=== PATIENT | female | born 1945 | race Caucasian/White ===

== ENCOUNTER → 2017-03-11 | Outpatient (CLI) | payer OTHER ==
[~2017-03-11] MED LIST: CALCTAB5 PO; CHOL100010 PO; DXY50 PO; FSM70 PO; GFNSR600 PO; MOME50SP5; MULT-506 PO; PARO1TAB27 PO; SIMV10TA2 PO; SYN100 PO
[2017-03-11 13:29] LABS: BASO % 0.3 %; BASO ABS # 0.01 K/uL (0-0.2); COMPLETE YES; EOS % 2.8 %; HEMATOCRIT 37.1 % (37-47); IG% 0.3 %; LYMPH % 37.9 %; MEAN CELL VOLUME 95.6 fL (80-100); MEAN CORPUSCULAR HGB CONC 33.4 g/dl (32-36); MONO % 8.2 %; NEUT % 50.5 %; PLATELET COUNT 273 K/uL (130-400); RED BLOOD COUNT 3.88 M/uL (4.2-5.4); WHITE BLOOD COUNT 3.17 K/uL (4.8-10.8)
[2017-03-11 13:53] LABS: ALT/SGPT 23 U/L (12-78); AST/SGOT 21 U/L (15-37); BLOOD UREA NITROGEN 19 mg/dl (7-18); BUN/CREATININE RATIO 27.4 (10-20); CARBON DIOXIDE 30 mmol/L (21-32); CHLORIDE 104 mmol/L (98-107); CHOLESTEROL 213 mg/dl (0-200); GLUCOSE 88 mg/dl (70-99); SODIUM 142 mmol/L (136-145); TRIGLYCERIDES 69 mg/dl (0-150); VERY LOW DENSITY LIPOPROT CALC 14 mg/dl
[2017-03-11 13:56] LABS: ALB/GLOB RATIO 1.3 (0.9-2); ALKALINE PHOSPHATASE 51 U/L (45-117); CALCIUM 9.3 mg/dl (8.5-10.1); CHOLESTEROL/HDL RATIO 3.1; HDL CHOLESTEROL 69 mg/dl; LDL CHOLESTEROL CALCULATED 130 mg/dl
== END | disposition home or self-care (01) ==
LOC: C.LABBC 10:15
PROVIDERS: ATTEND Internal Medicine Endocrinology, Diabetes & Metabolism
DX: C73 Malignant neoplasm of thyroid gland (principal); E89.0 Postprocedural hypothyroidism; E78.5 Hyperlipidemia, unspecified; M85.80 Other specified disorders of bone density and structure, unspecified site; Z92.3 Personal history of irradiation

== ENCOUNTER → 2017-05-14 | Outpatient (CLI) | payer OTHER ==
--- NOTE | 2017-05-15 07:45 | MAMMOGRAPHY REPORT ---
BILATERAL DIGITAL SCREENING MAMMOGRAM WITH CAD: 05/14/2017 CLINICAL HISTORY: Routine screening. Patient has no complaints. TECHNIQUE: Bilateral CC and MLO views were obtained. Current study was also evaluated with a Comput er Aided Detection (CAD) system. COMPARISON: Comparison is made to exams dated: 05/09/2016 mammogram, 04/22/2015 mammogram, 04/21/2014 ma mmogram, 04/20/2013 mammogram, 04/14/2012 mammogram, and 04/12/2011 mammogram - [facility] er. BREAST COMPOSITION: There are scattered areas of fibroglandular density in both breasts. FINDINGS: The parenchymal pattern is unchanged. No developing mass, architectural distortion or clus ter of suspicious microcalcifications is seen in either breast. IMPRESSION: ACR BI-RADS CATEGORY 2: BENIGN There is no mammographic evidence of malignancy. A 1 year screening mammogram is recommended. The pa tient will receive written notification of the results. Approximately 10% of breast cancers are not detected with mammography. A negative mammographic report should not delay biopsy if a clinically suggestive mass is present. Cecilia Peterson M.D. ay/:05/14/2017 16:09:38 [employer]obile [employer] Truck Rental Dispatcher: Carla Cam, [facility] letter sent: Normal 1/2 BI-RADS Code: ACR BI-RADS Category 2: Benign
== END | disposition home or self-care (01) ==
LOC: C.MAMM 11:20
PROVIDERS: ATTEND Family Medicine
DX: Z12.31 Encounter for screening mammogram for malignant neoplasm of breast (principal)

== ENCOUNTER → 2018-02-19 | Outpatient (CLI) | payer OTHER | END | disposition home or self-care (01) | LOC: C.LABBC 09:50 | PROVIDERS: ATTEND Internal Medicine Endocrinology, Diabetes & Metabolism | DX: C73 Malignant neoplasm of thyroid gland (principal); E89.0 Postprocedural hypothyroidism; M85.80 Other specified disorders of bone density and structure, unspecified site; E78.5 Hyperlipidemia, unspecified; Z92.3 Personal history of irradiation ==

== ENCOUNTER → 2018-02-25 | Outpatient (CLI) | payer OTHER | END | disposition home or self-care (01) | LOC: C.PAPS 13:47 | PROVIDERS: ATTEND Obstetrics & Gynecology | DX: Z91.89 Other specified personal risk factors, not elsewhere classified (principal); R87.610 Atypical squamous cells of undetermined significance on cytologic smear of cervix (ASC-US) ==

== ENCOUNTER → 2018-04-11 | Outpatient (CLI) | payer OTHER ==
--- NOTE | 2018-04-18 09:45 | CODING QUERY NO DIAGNOSIS ---
TREATMENT RENDERED WITHOUT A DIAGNOSIS 46 To promote full compliance with coding requirements relating to patient care, physician participation is requested in all cases of acquisitions editor uncertainty. Please assist us with providing a diagnosis/symptom for the test(s) below: A diagnosis/symptom was not documented on your Order. A valid diagnosis/symptom is required to bill all insurances. Please remember that we are unable to code a diagnosis of rule out, probable, possible, questionable, or suspected. DOS 04/11/18 Tests that require a diagnosis: * LIPID PROFILE FASTING DIAGNOSIS: Provider Signature: Date: Thank you Chelly Peters Health Information Management Once completed, please kindly fax back to [phone] For questions please call [phone]
== END | disposition home or self-care (01) ==
LOC: C.LABBC 08:18
PROVIDERS: ATTEND Internal Medicine
DX: Z01.89 Encounter for other specified special examinations (principal)

== ENCOUNTER 2025-08-31 17:10 | Observation (INO) ==
--- NOTE | 2025-08-31 17:49 | Emergency Department Note ---
Impression & Plan SOB (shortness of breath), Exertional dyspnea, CHF (congestive heart failure), Heart murmur, Elevated troponin, Elevated d-dimer ED Provider Note NAME: JOSÉ LUIS QUESADA AGE: 79 SEX: F : 1945 ARRIVES VIA: Walk-In INFORMANT: [Patient] ED PROVIDER(S): [Raulito Tobin MD] CHIEF COMPLAINT: Abnormal laboratories HISTORY OF PRESENT ILLNESS: The patient is a 79-year-old female who presents to the ER with shortness of breath that she notices with exertion or any type of exercise. The breathing issue has been present for at least 3 weeks. No leg swelling, no history of previous DVT or PE. She states that she did have some upper back pain for a while when this all started however, this has now resolved. There has been no prolonged travel by car plane or train. She has not had recent surgery. The patient does have a history of mitral valve prolapse, this is followed reg ularly with cardiac echoes. The patient states that she saw her doctor today and had outpatient laboratory work done, she had an elevated D-dimer and was sent for a CT scan to rule out PE. The D-dimer value was 640. Today's outpatient laboratory testing showed a white blood cell count of 4.48, hemoglobin of 11.9, platelet count of 307. There was no renal failure or significant electrolyte abnormality. No concerning liver enzyme elevation. Patient had a normal TSH. Chest x-ray was read as showing potential mild CHF without pneumonia. PMHx/PSHx/Social Hx: See Below PHYSICAL EXAM: GENERAL: Patient is in no acute distress. HEENT: No acute trauma, normocephalic atraumatic, mucous membranes moist, no nasal congestion. NECK: No stridor, no adenopathy, no meningismus, trachea is midline. LUNGS: Clear to auscultation bilaterally, no wheeze, no rhonchi, breath sounds equal. HEART: 3/6 systolic murmur, regular rate and rhythm. ABDOMEN: Soft, nontender, no peritonitis. EXTREMITIES: No cyanosis, full range of motion of all the joints without pain or difficulty. No pedal edema. NEUROLOGIC: Oriented x 3, no acute motor or sensory deficits, no focal weakness. SKIN: No jaundice, no diaphoresis. DIFFERENTIAL DIAGNOSIS: CHF, mitral valve prolapse, PE, anemia, among others. EMERGENCY DEPARTMENT PROCEDURES: MEDICAL DECISION MAKING: I did review the laboratory work from earlier today as noted in the above history section. There was no concerning anemia. No renal failure or significant electrolyte abnormality. No concerning liver enzyme elevation. The patient's TSH was in the normal range. D-dimer was elevated making PE more likely. I did review her chest x-ray from earlier today, there was some mild CHF seen, no pneumonia. Here in the ED, some additional laboratory work was performed. She had a magnesium that was normal at 2.1. There was a mild elevation to the troponin at 25.5, this could indicate some cardiac strain/injury. BNP was quite high at 421 consistent with heart failure and fluid overload. There was no coagulopathy. The ECG showed a sinus rhythm, no acute ST elevation. Chest CT did not show PE, CHF was seen. Patient has a prominent cardiac murmur. She presents with increasing shortness of breath especially with exertion. She appears to be in heart failure by x-ray and laboratory testing. The patient was given IV Lasix. Given the findings, given the troponin elevation and her dyspnea, I do think hospitalization for further workup is warranted. I did speak with the patient and case management, the on-call hospitalist was consulted. Prior/Outside records/notes reviewed: Today's outpatient note describing her presentation, their concerns and the need for an ED referral. ECG per my interpretation: Indication was shortness of breath. The ECG shows a normal sinus rhythm with a rate of 70. There is some nonspecific ST change diffusely. There is no ST elevation, no PVCs. The QTc is 442. Continuous Cardiac Monitoring per my interpretation: An order was placed for continuous cardiac monitoring. The monitor shows a rate of 79 with normal sinus rhythm. Imaging/x-ray results per my interpretation: Chest x-ray from earlier today shows some mild CHF, no pneumonia. Chronic Medical/Social conditions affecting care: Advanced age. Care/Management discussed with: Case management and the on-call hospitalist. Level of care consideration(s): After review of the information above and other included data: --I believe the patient requires escalation of care to admission DISPOSITION: Admission Past Med/Surg History Problem List Elevated d-dimer (Acute) Elevated troponin (Acute) Heart murmur (Acute) CHF (congestive heart failure) (Acute) Exertional dyspnea (Acute) SOB (shortness of breath) (Acute) Obstructive sleep apnea Osteoporosis Hx of papillary thyroid carcinoma Tubular adenoma (Chronic) Vitamin D deficiency (Chronic) Stress incontinence in female (Chronic) Nocturnal hypoxemia (Chronic) Myxomatous mitral valve (Chronic) follows with [facility] Moderate mitral regurgitation (Chronic) Hypothyroidism (Chronic) Hyperlipidemia (Chronic) Medical History History of colon polyps Family history of colon cancer Microscopic hematuria Leukopenia Myxomatous mitral valve no cards History of COVID-19 2020 History of kidney stones Osteoarthritis Urinary frequency Surgical History History of trigger finger with release left ring finger History of cataract surgery History of breast biopsy benign History of colonoscopy History of tooth extraction History of tonsillectomy History of total thyroidectomy History of nasal polypectomy Family History Father Pancreatic cancer Valvular heart disease Hypertension Mother Colon cancer Hypertension Brother Systemic lupus erythematosus Grandmother Cancer Daughter Liver transplanted Other No family history of adverse response to anesthesia Denies family history of Ovarian cancer Prostate cancer Myocardial infarction Breast cancer Lung cancer Colorectal cancer Social History Smoking Status: Former smoker Tobacco Type: Cigarettes Smoking End Date: 50 years ago; Second Hand Exposure: No; Do You Dip or Chew Tobacco: No; Hx Alcohol Use: Yes Alcohol type: wine Alcohol Intake Frequency Comment: 2 glasses a day Hx Substance Use: No Preferred Language: Slovak Communication Ability: Effective Visual Impairment: Diminished Hearing Ability: Use of Hearing Aid Advertising Assistant Required: No Beliefs That Will Affect Care: None marital status: Current Living Situation: Spouse current occupational status: retired How many Children do You have: 2 Feels Safe at Home: Yes Safety Concerns: Feels Safe At This Time Childhood Exposure to Second-Hand Smoke: No Diet: low carbohydrate and low salt caffeine: Yes (coffee ) Dental Care, Regularly: Yes Physical Activity Frequency: Daily Physical Activity Frequency Comment: walks daily Seatbelt Use: always Sunscreen Use: Yes (sometimes ) Do you think of yourself as: straight/heterosexual Assistive Devices: Glasses and Hearing Aid - Bilateral Allergies Allergies Allergy/AdvReac Type Severity Reaction Status Date / Time Sulfa (Sulfonamide Allergy Intermediate RASH Verified 08/31/25 18:50 Antibiotics) house dust mite Allergy . Verified 08/31/25 18:50 mold Allergy . Verified 08/31/25 18:50 Home Meds Home Medications Medication Instructions Recorded Confirmed triamcinolone acetonide 0.1 % 1 appln dental QID PRN ud 05/19/19 08/31/25 dental paste atorvastatin 20 mg tablet 20 mg PO HS 03/07/20 08/31/25 calcium 600 mg-D3 20 mcg-magnesium 1 tab PO QAM 03/08/20 08/31/25 50 um-Zd-cypmng-lavern-boron tablet (Calcium 600-D3 Plus (mag-zinc)) cholecalciferol (vitamin D3) 50 50 mcg PO QAM 03/08/20 08/31/25 mcg (2,000 unit) capsule (Vitamin D3) whsjbsou-zfpz-ejhw 8 mg-folic 400 1 tab PO QAM 03/08/20 08/31/25 mcg-K 50 mcg-lutein 300 mcg tablet (Multivitamin Women 50 Plus) vit C 226 mg-vit E 90 mg-copper 1 cap PO BID 03/08/20 08/31/25 0.8 mg-zinc oxide-lutein 5 mg capsule (PreserVision Lutein) levothyroxine 112 mcg tablet 100 mcg PO QAM #90 tabs 03/13/24 08/31/25 (Synthroid) Previous Rx's Medication Instructions Recorded paroxetine HCl 20 mg tablet 20 mg PO QPM #90 tabs 06/21/25 Results & Data (ED) Vital Signs Vital Signs - 24 hr 08/31/25 17:20 08/31/25 18:28 08/31/25 19:11 Temperature 36.3 C L Temperature Source Skin Pulse Rate 79 74 Pulse Rate [Apical] 83 Respiratory Rate 16 18 Blood Pressure 136/85 Blood Pressure [Right Arm] 131/81 Blood Pressure Mean 102 Blood Pressure Mean [Right Arm] 97 Pulse Oximetry 95 93 Sepsis Recent Fever Within 48 Hours No Sepsis New/Unexplained Change in Mental Status N/A Sepsis Action Taken by Nursing No Action Required Home Medications Current Medication List: was personally reviewed by me Laboratory Data Attestation: I reviewed the patient's lab results. Lab Results 08/31/25 Range/Units 18:07 PT 10.8 (9.0-12.0) Seconds INR 1.0 (0.9-1.1) APTT 26 (21-31) Seconds PTT Ratio 1.0 Magnesium 2.1 (1.7-2.4) mg/dl Troponin I High Sens 25.5 H (0-14) pg/ml B-Natriuretic Peptide 421 H (0-100) pg/ml Administered Medications Atorvastatin Calcium (Atorvastatin 20 Mg Tab) 20 mg PO HS ALTAGRACIA Stop: 09/30/25 22:00 Last Admin: 08/31/25 22:42 Dose: 20 mg Documented By: TP Levothyroxine Sodium (Levothyroxine Sodium 100 Mcg Tablet) 100 mcg PO HS ALTAGRACIA Stop: 09/30/25 22:00 Last Admin: 08/31/25 22:55 Dose: Not Given Documented By: TP Paroxetine HCl (Paroxetine Hcl 20 Mg Tab) 20 mg PO QPM ALTAGRACIA Stop: 09/30/25 22:00 Last Admin: 08/31/25 22:56 Dose: Not Given Documented By: TP Discontinued Medications Aspirin (Aspirin 81 Mg Chew) 324 mg PO NOW STA Stop: 08/31/25 20:25 Last Admin: 08/31/25 20:37 Dose: 324 mg Documented By: SILKE Furosemide (Furosemide Inj 20 Mg/2 Ml Vial) 20 mg IV ONE ONE Stop: 08/31/25 19:07 Last Admin: 08/31/25 19:23 Dose: 20 mg Documented By: karol Ioversol (Optiray 320 125ml) 118 ml IV ONCE ONE Stop: 08/31/25 18:21 Last Admin: 08/31/25 18:20 Dose: 118 ml Documented By: BARBARA Imaging Data Radiologist's Impression: Chest CTA 08/31/25 17:34 CT PULMONARY ANGIOGRAM. HISTORY: Chest pain TECHNIQUE: Enhanced CT examination of the chest was performed using pulmonary embolism protocol. IV CONTRAST: 100 mL of OMNIPAQUE 300 COMPARISON: The chest radiographs from the same day are not viewable in our system. FINDINGS: PULMONARY ARTERIES: No filling defect identified to the segmental level. LYMPH NODES: No lymphadenopathy by size criteria. CARDIOVASCULAR: Enlarged cardiac size. No right heart strain. No pericardial effusion. No aortic aneurysm. There are coronary artery calcifications in keeping with coronary artery disease. Enlargement of the pulmonary arteries suggesting pulmonary arterial hypertension. Evidence of right-sided cardiac dysfunction with refluxed vascular contrast in the IVC and the hepatic veins. MEDIASTINUM: No solid or cystic mediastinal masses. The esophagus is normally decompressed. LUNGS/PLEURA: The central tracheo-bronchial tree is patent. No mass or consolidation identified. Bibasilar atelectasis. Mild interstitial pulmonary edema. Small pleural fluids. No pneumothorax. No suspicious pulmonary nodules. BONES: No suspicious osseous lesions. VISUALIZED LOWER NECK: Thyroidectomy. VISUALIZED UPPER ABDOMEN: Multiple hypodensities of the liver measuring up to 9 mm are probably cysts or hemangiomas. Small hiatal hernia. IMPRESSION: No pulmonary embolism identified to the segmental level. CHF with cardiomegaly, mild interstitial pulmonary edema and small pleural fluids. Enlargement of the pulmonary arteries suggesting pulmonary artery hypertension. Additional evidence of right-sided cardiac dysfunction with refluxed intravascular contrast seen in the IVC and hepatic veins. No focal consolidation is identified in the lungs Electronically signed by Edson Ramirez 08-31-2025 6:55 PM Discharge Plan Visit Data Chief Complaint: Abnormal Labs/Diagnostic Testing Stated Complaint: CT STAT, D DIMER TEST, REF BY ED Provider: Raulito Tobin Discharge Problem: SOB (shortness of breath), Exertional dyspnea, CHF (congestive heart failure), Heart murmur, Elevated troponin, Elevated d-dimer Patient Disposition: Admitted As Inpatient Condition: Fair Discharge Instructions Interventions: ED Discharge Assessment Last Done: 08/31/25 21:46 Discharge Problem: CHF (congestive heart failure) Qualifiers: Heart failure type: unspecified Heart failure chronicity: acute Qualified Code(s): I50.9 - Heart failure, unspecified
[2025-08-31] MEDS: OPTIRAY 320 125ml IV ONE (18:20)
[2025-08-31 18:39] LABS: Magnesium 2.1 mg/dl (1.7-2.4)
[2025-08-31 18:53] LABS: INR 1.0 (0.9-1.1); Partial Thromboplastin Time 26 Seconds (21-31); Prothrombin Time 10.8 Seconds (9.0-12.0)
--- NOTE | 2025-08-31 18:56 | CT Scan Report ---
CT PULMONARY ANGIOGRAM. HISTORY: Chest pain TECHNIQUE: Enhanced CT examination of the chest was performed using pulmonary embolism protocol. IV CONTRAST: 100 mL of OMNIPAQUE 300 COMPARISON: The chest radiographs from the same day are not viewable in our system. FINDINGS: PULMONARY ARTERIES: No filling defect identified to the segmental level. LYMPH NODES: No lymphadenopathy by size criteria. CARDIOVASCULAR: Enlarged cardiac size. No right heart strain. No pericardial effusion. No aortic aneurysm. There are coronary artery calcifications in keeping with coronary artery disease. Enlargement of the pulmonary arteries suggesting pulmonary arterial hypertension. Evidence of right-sided cardiac dysfunction with refluxed vascular contrast in the IVC and the hepatic veins. MEDIASTINUM: No solid or cystic mediastinal masses. The esophagus is normally decompressed. LUNGS/PLEURA: The central tracheo-bronchial tree is patent. No mass or consolidation identified. Bibasilar atelectasis. Mild interstitial pulmonary edema. Small pleural fluids. No pneumothorax. No suspicious pulmonary nodules. BONES: No suspicious osseous lesions. VISUALIZED LOWER NECK: Thyroidectomy. VISUALIZED UPPER ABDOMEN: Multiple hypodensities of the liver measuring up to 9 mm are probably cysts or hemangiomas. Small hiatal hernia. IMPRESSION: No pulmonary embolism identified to the segmental level. CHF with cardiomegaly, mild interstitial pulmonary edema and small pleural fluids. Enlargement of the pulmonary arteries suggesting pulmonary artery hypertension. Additional evidence of right-sided cardiac dysfunction with refluxed intravascular contrast seen in the IVC and hepatic veins. No focal consolidation is identified in the lungs Electronically signed by Edson Ramirez 08-31-2025 6:55 PM
[2025-08-31] MEDS: FUROSEMIDE INJ 20 MG/2 ML VIAL IV ONE (19:23)
--- NOTE | 2025-08-31 20:29 | History & Physical Report ---
Date of Service August 31, 2025 Assessment & Plan (1) CHF (congestive heart failure): (2) Elevated d-dimer: (3) Elevated troponin: (4) Heart murmur: Plan The patient is a 79-year-old female with a past medical history including HUA, papillary thyroid carcinoma, vitamin D deficiency, urinary stress incontinence, myxomatous mitral valve, moderate mitral regurgitation, hypothyroidism, and hyperlipidemia. She presents to the emergency department with shortness of breath that has been going on for last 3 to 4 weeks. She had a D-dimer performed in the outpatient setting by her PCP due to a recent return trip from [place] last week, and was found to be elevated at 640. She was sent to the emergency department for evaluation for possible pulmonary embolism. CTA chest PE protocol was negative for PE, but did show mild CHF and pulmonary artery hypertension. Troponin was 25.5, BNP was 421, ALT was 56. EKG showed normal sinus rhythm at [address]-T changes. From the ED patient was given furosemide 20 mg IV, then [facility]. Mild CHF/shortness of breath/systolic murmur/elevated troponin- The patient will be admitted to telemetry for serial cardiac enzymes, serial EKG's, cardiac rhythm monitoring and a 2-D echocardiogram with Dopplers. Initial troponin 25.5, with follow-up pending Give aspirin 324 mg now, and 81 mg every morning Known history of myxomatous mitral valve and moderate mitral regurgitation. Initial referral for evaluation to the ED was due to an elevated D-dimer. With CTA chest negative for PE. From the ED patient received furosemide 20 mg IV. At the time my evaluation patient reports her breathing was normalized. Hold on any further furosemide at this time. Consult cardiology, reports having seen Dr. Mcgraw in the past. Hyperlipidemia- Continue atorvastatin Hypothyroidism- Continue levothyroxine Mood disorder- Continue paroxetine Pulmonary artery hypertension- Noted on on a CTA chest PE protocol. History of Present Illness Primary Care Provider: Roslyn Molina MD The patient is a 79-year-old female with a past medical history including HUA, papillary thyroid carcinoma, vitamin D deficiency, urinary stress incontinence, myxomatous mitral valve, moderate mitral regurgitation, hypothyroidism, and hyperlipidemia. She presents to the emergency department with shortness of breath that has been going on for last 3 to 4 weeks. She had a D-dimer performed in the outpatient setting by her PCP due to a recent return trip from [place] last week, and was found to be elevated at 640. She was sent to the emergency department for evaluation for possible pulmonary embolism. CTA chest PE protocol was negative for PE, but did show mild CHF and pulmonary artery hypertension. Troponin was 25.5, BN P was 421, ALT was 56. EKG showed normal sinus rhythm at [address]-T changes. From the ED patient was given furosemide 20 mg IV, then [facility]. Allergies Allergy/AdvReac Type Severity Reaction Status Date / Time Sulfa (Sulfonamide Allergy Intermediate RASH Verified 08/31/25 18:50 Antibiotics) house dust mite Allergy . Verified 08/31/25 18:50 mold Allergy . Verified 08/31/25 18:50 Home Medications Medication Instructions Recorded Confirmed Type triamcinolone acetonide 0.1 % 1 appln dental QID PRN ud 05/19/19 08/31/25 History dental paste atorvastatin 20 mg tablet 20 mg PO HS 03/07/20 08/31/25 History calcium 600 mg-D3 20 mcg-magnesium 1 tab PO QAM 03/08/20 08/31/25 History 50 ls-Lt-xvdrff-lavern-boron tablet (Calcium 600-D3 Plus (mag-zinc)) cholecalciferol (vitamin D3) 50 50 mcg PO QAM 03/08/20 08/31/25 History mcg (2,000 unit) capsule (Vitamin D3) sgnllvvt-jgkr-abek 8 mg-folic 400 1 tab PO QAM 03/08/20 08/31/25 History mcg-K 50 mcg-lutein 300 mcg tablet (Multivitamin Women 50 Plus) vit C 226 mg-vit E 90 mg-copper 1 cap PO BID 03/08/20 08/31/25 History 0.8 mg-zinc oxide-lutein 5 mg capsule (PreserVision Lutein) levothyroxine 112 mcg tablet 100 mcg PO QAM #90 tabs 03/13/24 08/31/25 History (Synthroid) paroxetine HCl 20 mg tablet 20 mg PO QPM #90 tabs 06/21/25 08/31/25 Rx Past Med/Surg History Problem List Elevated d-dimer (Acute) Elevated troponin (Acute) Heart murmur (Acute) CHF (congestive heart failure) (Acute) Exertional dyspnea (Acute) SOB (shortness of breath) (Acute) Obstructive sleep apnea Osteoporosis Hx of papillary thyroid carcinoma Tubular adenoma (Chronic) Vitamin D deficiency (Chronic) Stress incontinence in female (Chronic) Nocturnal hypoxemia (Chronic) Myxomatous mitral valve (Chronic) follows with [facility] Moderate mitral regurgitation (Chronic) Hypothyroidism (Chronic) Hyperlipidemia (Chronic) Medical History History of colon polyps Family history of colon cancer Microscopic hematuria Leukopenia Myxomatous mitral valve no cards History of COVID-19 2020 History of kidney stones Osteoarthritis Urinary frequency Surgical History History of trigger finger with release left ring finger History of cataract surgery History of breast biopsy benign History of colonoscopy History of tooth extraction History of tonsillectomy History of total thyroidectomy History of nasal polypectomy Family History Father Pancreatic cancer Valvular heart disease Hypertension Mother Colon cancer Hypertension Brother Systemic lupus erythematosus Grandmother Cancer Daughter Liver transplanted Other No family history of adverse response to anesthesia Denies family history of Ovarian cancer Prostate cancer Myocardial infarction Breast cancer Lung cancer Colorectal cancer Social History Smoking Status: Former smoker Tobacco Type: Cigarettes Smoking End Date: 50 years ago; Second Hand Exposure: No; Do You Dip or Chew Tobacco: No; Hx Alcohol Use: Yes Alcohol type: wine Alcohol Intake Frequency Comment: 2 glasses a day Hx Substance Use: No Preferred Language: Wolof Communication Ability: Effective Visual Impairment: Diminished Hearing Ability: Use of Hearing Aid 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 Beliefs That Will Affect Care: None marital status: Current Living Situation: Spouse current occupational status: retired How many Children do You have: 2 Feels Safe at Home: Yes Safety Concerns: Feels Safe At This Time Childhood Exposure to Second-Hand Smoke: No Diet: low carbohydrate and low salt caffeine: Yes (coffee ) Dental Care, Regularly: Yes Physical Activity Frequency: Daily Physical Activity Frequency Comment: walks daily Seatbelt Use: always Sunscreen Use: Yes (sometimes ) Do you think of yourself as: straight/heterosexual Assistive Devices: Glasses and Hearing Aid - Bilateral Review of Systems Review of Systems: The patient denies palpitations, cough, lower extremity swelling, sore throat, fevers, chills, sweats, nausea, vomiting, diarrhea , constipation, abdominal pain, pelvic pain, blood in urine or stool, dysuria, urinary frequency or urgency, lightheadedness, dizziness, headache, memory loss, loss of consciousness, rash, abnormal bruising or bleeding, imbalance, focal or generalized weakness, numbness or tingling in arms or legs, generalized arthralgias or myalgias, or night sweats. The review of systems is otherwise negative other than for that already noted above, and at least 10 systems have been reviewed. Physical Exam Physical Exam: The patient is awake, alert and oriented 3, well developed and well nourished, normocephalic and atraumatic, lying in bed and in no acute distress. HEENT--PERRL, EOMI, mucous membranes and oropharynx Normal. Neck--supple. No JVD. No bruits. Thyroid normal, trachea midline, no adenopathy. Heart--normal S1 and S2. Systolic murmur, no rubs or gallops. Lungs--clear bilaterally, no respiratory distress, no accessory muscle use. Abdomen--normal bowel sounds and soft. Nontender. Nondistended, no hernias or masses, no organomegaly. Extremities--no cyanosis or clubbing. No edema. There are good distal pulses b/l. Dermatologic--normal skin turgor, normal color, no abnormal lymph nodes, no rash. Neurologic--cranial nerves II through XII grossly intact. Rheumatologic--normal range of motion. Psychiatric--normal affect. Results & Data Results & Data Vital Signs (Past 12 Hours) Vital Signs Temp Pulse Pulse Resp BP BP Pulse Ox 08/31/25 19:11 83 18 131/81 93 08/31/25 18:28 74 08/31/25 17:20 36.3 C L 79 16 136/85 95 Laboratory Results Laboratory Results PT 10.8 Seconds (9.0-12.0) 08/31/25 18:07 INR 1.0 (0.9-1.1) 08/31/25 18:07 APTT 26 Seconds (21-31) 08/31/25 18:07 PTT Ratio 1.0 08/31/25 18:07 Magnesium 2.1 mg/dl (1.7-2.4) 08/31/25 18:07 Troponin I High Sens 24.5 pg/ml (0-14) H 08/31/25 21:28 B-Natriuretic Peptide 421 pg/ml (0-100) H 08/31/25 18:07 Impressions Chest CTA 08/31/25 17:34 CT PULMONARY ANGIOGRAM. HISTORY: Chest pain TECHNIQUE: Enhanced CT examination of the chest was performed using pulmonary embolism protocol. IV CONTRAST: 100 mL of OMNIPAQUE 300 COMPARISON: The chest radiographs from the same day are not viewable in our system. FINDINGS: PULMONARY ARTERIES: No filling defect identified to the segmental level. LYMPH NODES: No lymphadenopathy by size criteria. CARDIOVASCULAR: Enlarged cardiac size. No right heart strain. No pericardial effusion. No aortic aneurysm. There are coronary artery calcifications in keeping with coronary artery disease. Enlargement of the pulmonary arteries suggesting pulmonary arterial hypertension. Evidence of right-sided cardiac dysfunction with refluxed vascular contrast in the IVC and the hepatic veins. MEDIASTINUM: No solid or cystic mediastinal masses. The esophagus is normally decompressed. LUNGS/PLEURA: The central tracheo-bronchial tree is patent. No mass or consolidation identified. Bibasilar atelectasis. Mild interstitial pulmonary edema. Small pleural fluids. No pneumothorax. No suspicious pulmonary nodules. BONES: No suspicious osseous lesions. VISUALIZED LOWER NECK: Thyroidectomy. VISUALIZED UPPER ABDOMEN: Multiple hypodensities of the liver measuring up to 9 mm are probably cysts or hemangiomas. Small hiatal hernia. IMPRESSION: No pulmonary embolism identified to the segmental level. CHF with cardiomegaly, mild interstitial pulmonary edema and small pleural fluids. Enlargement of the pulmonary arteries suggesting pulmonary artery hypertension. Additional evidence of right-sided cardiac dysfunction with refluxed intravascular contrast seen in the IVC and hepatic veins. No focal consolidation is identified in the lungs Electronically signed by Edson Ramirez 08-31-2025 6:55 PM Code Status & VTE Plan Code Status Full code VTE Prophylaxis Plan VTE Prophylaxis will be ordered: Yes PG Care Time/CCT Total # of Minutes Spent Total Time Spent with Patient: Total time spent is greater than 50% in coordination of care (as documented) at patient's floor/unit and/or counseling patient: Coding Level of Care Code 05577 INT INP/OBS CARE 3/75MIN Diagnoses CHF (congestive heart failure) I50.9 Heart failure chronicity: acute Heart failure type: unspecified Elevated d-dimer R79.89 Elevated troponin R79.89 Heart murmur R01.1 (1) CHF (congestive heart failure) Heart failure chronicity: acute Heart failure type: unspecified Qualified Code(s): I50.9 - Heart failure, unspecified
[2025-08-31] MEDS: ASPIRIN 81 MG CHEW PO STA (20:37)
[2025-08-31] MEDS ORDERED: ACETAMINOPHEN 325 MG TAB PO PRN (22:01)
[2025-08-31] MEDS ORDERED: VIT C E CUPRIC ZINC LUTEIN PO SCH (22:01)
[2025-08-31] MEDS ORDERED: NITROGLYCERIN SL 0.4 MG/TAB TAB SL PRN (22:01)
[2025-08-31] MEDS: ATORVASTATIN 20 MG TAB PO SCH (22:42)
[2025-08-31] MEDS: LEVOTHYROXINE SODIUM 100 MCG TABLET PO SCH (22:55)
[2025-09-01 06:28] LABS: Hematocrit (blood only) 33.6 % (37.0-47.0); Hemoglobin 11.8 g/dL (12.0-16.0); Immature Granulocytes # (auto) 0.01 K/uL (0.01-0.20); Immature Granulocytes % (auto) 0.3 %; Mean Corpuscular Hemoglobin 32.7 pg (25.0-34.0); Mean Corpuscular Volume 93.1 fL (80.0-100.0); Platelet Count 296 K/uL (130-400); RDW Standard Deviation 44.5 fL (36.4-46.3); Red Blood Count 3.61 M/uL (4.20-5.40); White Blood Count 3.95 K/ul (4.8-10.8)
[2025-09-01 06:46] LABS: Alanine Aminotransferase 56.0 U/L (7-52); Albumin Globulin Ratio 1.8 (0.9-2); Albumin Level 4.2 gm/dl (3.4-5.0); Alkaline Phosphatase 59.0 U/L (34-104); Anion Gap 8.0 (3-11); Bilirubin,Total 0.7 mg/dl (0.2-1.0); Blood Urea Nitrogen 12.0 mg/dl (6-23); Calcium 8.5 mg/dl (8.6-10.3); Carbon Dioxide 27.0 mmol/L (21-32); Chloride 106.0 mmol/L (98-107); Creatinine Clr Calc Pharmacy 58.1 ml/min; Globulin 2.4 gm/dl (2.5-4.0); Glucose 86.0 mg/dl (70-99(Fasting)); Magnesium 2.2 mg/dl (1.7-2.4); Potassium 3.6 mmol/L (3.5-5.1); Sodium 141.0 mmol/L (136-145); Total Protein 6.6 gm/dl (6.0-8.3)
[2025-09-01] MEDS: CEROVITE ADV FORMULA TAB PO SCH (09:01)
[2025-09-01] MEDS: CHOLECALCIFEROL 25 MCG (1000 UNITS) TAB PO SCH (09:01)
[2025-09-01] MEDS: CALCIUM 600MG + VIT D 400 IU TAB PO SCH (09:01)
[2025-09-01] MEDS: ASPIRIN 81 MG ECTAB PO SCH (09:02)
--- NOTE | 2025-09-01 10:25 | Cardiology Consultation ---
Date of Consultation September 01, 2025 Assessment & Plan (1) Exertional dyspnea: (2) Elevated troponin: (3) CHF (congestive heart failure): (4) Moderate mitral regurgitation: Plan Elevated troponin - Very mild elevation; 24.5 peak - No obvious concerns for ischemia at this time. - likely secondary to heart failure exacerbation TONG - could be multifactorial, but more likely due to congestive heart failure exacerbation - She does have moderate mitral regurg that was last evaluated in 2023, we will repeat an echocardiogram to reassess this along with overall heart function. Regurgitation could also be contributing to TONG if it is worsening. - If TONG does not improve despite diuretic use and regurgitation does not appear to be any more significant we could consider an outpatient stress test in the future. Acute CHF exacerbation - Echo ordered to assess LV function which will aide in treatment determination - 20mg IV Lasix given x1 yesterday. Lasix 40mg IV x1 ordered today. Consider additional evening dosing. - Potassium borderline at 3.6 today, potassium supplement ordered - Monitor renal function and lytes. - Track accurate I/O. Perform daily weights. - Consider repeat CXR Moderate Mitral regurgitation - Patient has had this assessed every 2 years. Echocardiogram ordered as her last assessment was in March 2024. Supervising Physician Co-Signing Physician Notes I saw and examined Mrs. Marin and agree with the documentation by KYLEIGH Haro. Briefly, some worsening exercise tolerance over a few weeks. Most notable when performing extremes of activity and ascending stairs. She characterizes this as a mild sense of dyspnea. She did not endorse symptoms of chest discomfort. No symptoms of palpitations or evidence of arrhythmia. She did have an elevated BNP which would suggest an element of pulmonary congestion. She did undergo a diuresis today. Symptoms very mild overall. This certainly could represent some progression of her valvular heart disease. Unfortunately, it is very difficult to characterize the severity of her mitral regurgitation on a transthoracic echo due to the eccentric nature of the regurgitant jet. I think she would benefit from a transesophageal echocardiogram which I described to her today. I think she would be safe for discharge with an outpatient evaluation to be arranged through our clinic. History of Present Illness Reason for Consultation: elevated troponin, chf, heart murmur Attending Physician: Graham Phillip MD History of Present Illness Soha is a 79-year-old female with a past medical history of moderate mitral regurgitation, hypothyroidism, HUA, hyperlipidemia who presented to the hospital on 08/31/25 due to shortness of breath with exertion. Soha states that over the past 4 weeks while she was staying in [place], she noticed that she was becoming fatigued much more easily with daily activities. Her legs chronically felt tired. She states that she was becoming short of breath easily with brisk walking and water aerobics which never occurred before. This progressed to basic activities such as ascending a flight of steps. The shortness of breath while climbing stairs was not severe enough that she needed to rest, but it was certainly noticeable to her. Her dyspnea with exertion concerned her as she has been told previously to report this symptom given her history of mitral regurgitation. She made an appointment with her PCP for this who ordered imaging and lab work. This lab work reflected an elevated D-dimer, slight troponin elevation at 24.5, BNP of 421. Mild CHF was noted on the x-ray. She was directed to proceed to the ER by her PCP. In the ER, EKG reflected normal sinus rhythm with a rate of 70. Nonspecific T wave abnormalities are present. There are no obvious conduction concerns. CTA was negative for PE, but again reflected pulmonary congestion. Troponin level had decreased to 22.4. Per review of telemetry, she has been in normal sinus rhythm since admission with rates ranging from the 60s to 70s. Soha denies any recent episodes of dizziness, near-syncope or syncope. She has not had any episodes of chest discomfort. She has not noticed any palpitations. She denies any shortness of breath at rest. She denies orthopnea. Dyspnea on exertion as described above. She has noticed that clothing has been a little tighter around her waist lately. She reports that she weighs her self nearly on a daily basis and reports a 2-3 lbs fluctuation. She denies any swelling to her lower extremities. Allergies Allergy/AdvReac Type Severity Reaction Status Date / Time Sulfa (Sulfonamide Allergy Intermediate RASH Verified 08/31/25 18:50 Antibiotics) house dust mite Allergy . Verified 08/31/25 18:50 mold Allergy . Verified 08/31/25 18:50 Home Medications Medication Instructions Recorded Confirmed Type triamcinolone acetonide 0.1 % 1 appln dental QID PRN ud 05/19/19 08/31/25 History dental paste atorvastatin 20 mg tablet 20 mg PO HS 03/07/20 08/31/25 History calcium 600 mg-D3 20 mcg-magnesium 1 tab PO QAM 03/08/20 08/31/25 History 50 db-Nl-tbmyta-lavern-boron tablet (Calcium 600-D3 Plus (mag-zinc)) cholecalciferol (vitamin D3) 50 50 mcg PO QAM 03/08/20 08/31/25 History mcg (2,000 unit) capsule (Vitamin D3) jwascrih-wuer-nyku 8 mg-folic 400 1 tab PO QAM 03/08/20 08/31/25 History mcg-K 50 mcg-lutein 300 mcg tablet (Multivitamin Women 50 Plus) vit C 226 mg-vit E 90 mg-copper 1 cap PO BID 03/08/20 08/31/25 History 0.8 mg-zinc oxide-lutein 5 mg capsule (PreserVision Lutein) levothyroxine 112 mcg tablet 100 mcg PO QAM #90 tabs 03/13/24 08/31/25 History (Synthroid) paroxetine HCl 20 mg tablet 20 mg PO QPM #90 tabs 06/21/25 08/31/25 Rx Patient History Medical History History of colon polyps Family history of colon cancer Microscopic hematuria Leukopenia Myxomatous mitral valve no cards History of COVID-2020 History of kidney stones Osteoarthritis Urinary frequency Surgical History History of trigger finger with release left ring finger History of cataract surgery History of breast biopsy benign History of colonoscopy History of tooth extraction History of tonsillectomy History of total thyroidectomy History of nasal polypectomy Family History Father Pancreatic cancer Valvular heart disease Hypertension Mother Colon cancer Hypertension Brother Systemic lupus erythematosus Grandmother Cancer Daughter Liver transplanted Other No family history of adverse response to anesthesia Denies family history of Ovarian cancer Prostate cancer Myocardial infarction Breast cancer Lung cancer Colorectal cancer Social History Smoking Status: Former smoker Tobacco Type: Cigarettes Second Hand Exposure: No; Do You Dip or Chew Tobacco: No; Hx Alcohol Use: Yes Alcohol type: wine Alcohol Intake Frequency Comment: 2 glasses a day Hx Substance Use: No Preferred Language: Malagasy Communication Ability: Effective Visual Impairment: Diminished Hearing Ability: Use of Hearing Aid Support Representative Required: No Beliefs That Will Affect Care: None marital status: Current Living Situation: Spouse current occupational status: retired How many Children do You have: 2 Feels Safe at Home: Yes Childhood Exposure to Second-Hand Smoke: No Diet: low carbohydrate and low salt caffeine: Yes (coffee ) Dental Care, Regularly: Yes Physical Activity Frequency: Daily Physical Activity Frequency Comment: walks daily Seatbelt Use: always Sunscreen Use: Yes (sometimes ) Do you think of yourself as: straight/heterosexual Assistive Devices: None Review of Systems Review of Systems: Per HPI Physical Exam Physical Exam: Physical Exam: AOx3. Mood affect appear normal. All questions appropriately. HEENT: Sclerae are anicteric. Pupils are equal and reactive to light and accommodation. Extraocular movements were intact. Neuro: Cranial nerves intact Lungs: Lungs are clear to auscultation bilaterally. There are no rales wheezes or rhonchi. Normal respiratory effort without use of accessory muscles. Cardiac: The rhythm was regular. S1 and S2 were normal. 3/6 harsh, holosystolic murmur most noticeable at the apex. Extremities: Patient has bilateral radial pulses that are equal in intensity. There is no evidence cyanosis or clubbing. There was no evidence of significant peripheral edema bilaterally. Skin: There are no rashes noted on examination today. Results & Data Vital Signs (Past 12 Hours) Vital Signs Temp Pulse Pulse Resp BP BP Pulse Ox 09/01/25 08:06 36.6 C 70 16 147/90 H 94 09/01/25 03:06 36.6 C 66 18 111/73 92 08/31/25 22:12 36.4 C L 68 16 143/82 H 94 08/31/25 21:46 75 18 123/83 94 08/31/25 21:45 75 18 123/83 94 O2 Del Method 09/01/25 08:06 Room Air 09/01/25 03:06 Room Air 08/31/25 22:12 Room Air 08/31/25 21:46 Room Air 08/31/25 21:45 Room Air PG Care Time/CCT Total # of Minutes Spent Total Time Spent with Patient: Total time spent is greater than 50% in coordination of care (as documented) at patient's floor/unit and/or counseling patient: [place] [address] INT INP/OBS CARE MIN Patient Type New Diagnoses Exertional dyspnea R06.09 Elevated troponin R79.89 CHF (congestive heart failure) I50.9 Heart failure chronicity: acute Heart failure type: unspecified Moderate mitral regurgitation I34.0 (3) CHF (congestive heart failure) Heart failure chronicity: acute Heart failure type: unspecified Qualified Code(s): I50.9 - Heart failure, unspecified
--- NOTE | 2025-09-01 10:42 | Hospitalist Progress Note ---
Date of Service September 01, 2025 Assessment & Plan (1) CHF (congestive heart failure): Plan: -cardiology consult appreciated -additional Lasix given -f/u Echo (2) Elevated d-dimer: Plan: -CTA negative for PE Plan The patient is a 79-year-old female with a past medical history including HUA, papillary thyroid carcinoma, vitamin D deficiency, urinary stress incontinence, myxomatous mitral valve, moderate mitral regurgitation, hypothyroidism, and hyperlipidemia. She presents to the emergency department with shortness of breath that has been going on for last 3 to 4 weeks. She had a D-dimer performed in the outpatient setting by her PCP due to a recent return trip from [place] last week, and was found to be elevated at 640. She was sent to the emergency department for evaluation for possible pulmonary embolism. CTA chest PE protocol was negative for PE, but did show mild CHF and pulmonary artery hypertension. Troponin was 25.5, BNP was 421, ALT was 56. EKG showed normal sinus rhythm at [address]-T changes. From the ED patient was given furosemide 20 mg IV, then referred for evaluation for admission to [facility]. Admission and Anticipated Discharge Date Admission Date: August 31, 2025 Subjective No events overnight. Pt resting comfortably in bed. Review of Systems Review of Systems: The patient denies palpitations, cough, lower extremity swelling, sore throat, fevers, chills, sweats, nausea, vomiting, diarrhea , constipation, abdominal pain, pelvic pain, blood in urine or stool, dysuria, urinary frequency or urgency, lightheadedness, dizziness, headache, memory loss, loss of consciousness, rash, abnormal bruising or bleeding, imbalance, focal or generalized weakness, numbness or tingling in arms or legs, generalized arthralgias or myalgias, or night sweats. The review of systems is otherwise negative other than for that already noted above, and at least 10 systems have been reviewed. Physical Exam Physical Exam: GENERAL APPEARANCE NAD, activity normal for age, well developed/ well nourished, no cyanosis, pallor, or diaphoresis. EYES lids/conjunctiva normal. EARS/NOSE/THROAT Mucous membranes moist, nares normal, lips/teeth normal uvula midline without oral pharyngeal erythema, exudate or swelling TMs normal bilaterally. No lymphangitis/lymphedema. HEAD/NECK normocephalic atraumatic, no facial trauma, neck is supple. RESPIRATORY respiratory effort normal, speaks in full sentences, no tripod position, no accessory muscle use. Lungs clear to auscultation without rhonchi, wheezes, rales CARDIAC Regular rate and rhythm, no edema. ABDOMINAL Soft, ND/NT. No evidence of fluid wave. No pulsatile masses on exam, rebound tenderness, Oneill sign or pain over Mcburney's point. MUSCLES/EXTREMITIES No abnormal range of motion, no swelling. SKIN Warm, pink and dry. No rashes, dermatoses, petechiae or lesions. NEUROLOGICAL Speech is clear and appropriate. Normal level of consciousness. Gait and coordination are normal. 5/5 strength in all extremities. PSYCH Normal mood and affect. Judgement/competence is appropriate Results & Data Results & Data Vital Signs (Past 12 Hours) Vital Signs Temp Pulse Resp BP Pulse Ox O2 Del Method 09/01/25 08:06 36.6 C 70 16 147/90 H 94 Room Air 09/01/25 03:06 36.6 C 66 18 111/73 92 Room Air PG Care Time/CCT Total # of Minutes Spent Total Time Spent with Patient: Total time spent is greater than 50% in coordination of care (as documented) at patient's floor/unit and/or counseling patient: Coding Level of Care Code 63620 SUB INP/OBS CARE 2/35MIN Diagnoses CHF (congestive heart failure) I50.9 Heart failure chronicity: acute Heart failure type: unspecified Elevated d-dimer R79.89 (1) CHF (congestive heart failure) Heart failure chronicity: acute Heart failure type: unspecified Qualified Code(s): I50.9 - Heart failure, unspecified
[2025-09-01] MEDS: FUROSEMIDE 40 MG/4 ML VIAL IV ONE (11:04)
[2025-09-01] MEDS: POTASSIUM CHLORIDE CRTAB 20 MEQ TABCR PO ONE (11:05)
[2025-09-01 11:52] VITALS: TEMP 98.2
--- NOTE | 2025-09-01 13:23 | XCELERA ---
[id number]
[2025-09-01 14:09] VITALS: BP 131/80; RESP 19; O2SAT 93
--- NOTE | 2025-09-01 16:38 | Discharge Summary ---
Discharge Summary Date of Service September 01, 2025 Principal Dx & Hospital Course #1 = Principal Diagnosis (1) CHF (congestive heart failure): -cardiology consult appreciated -additional Lasix given -f/u Echo as out patient (2) Elevated d-dimer: -CTA negative for PE Plan The patient is a 79-year-old female with a past medical history including HUA, papillary thyroid carcinoma, vitamin D deficiency, urinary stress incontinence, myxomatous mitral valve, moderate mitral regurgitation, hypothyroidism, and hyperlipidemia. She presents to the emergency department with shortness of breath that has been going on for last 3 to 4 weeks. She had a D-dimer performed in the outpatient setting by her PCP due to a recent return trip from [place] last week, and was found to be elevated at 640. She was sent to the emergency department for evaluation for possible pulmonary embolism. CTA chest PE protocol was negative for PE, but did show mild CHF and pulmonary artery hypertension. Troponin was 25.5, BNP was 421, ALT was 56. EKG showed normal sinus rhythm at [address]-T changes. From the ED patient was given furosemide 20 mg IV, then referred for evaluation for admission to [facility]. Admission HPI Per Admitting Provider The patient is a 79-year-old female with a past medical history including HUA, papillary thyroid carcinoma, vitamin D deficiency, urinary stress incontinence, myxomatous mitral valve, moderate mitral regurgitation, hypothyroidism, and h yperlipidemia. She presents to the emergency department with shortness of breath that has been going on for last 3 to 4 weeks. She had a D-dimer performed in the outpatient setting by her PCP due to a recent return trip from [place] last week, and was found to be elevated at 640. She was sent to the emergency department for evaluation for possible pulmonary embolism. CTA chest PE protocol was negative for PE, but did show mild CHF and pulmonary artery hypertension. Troponin was 25.5, BN P was 421, ALT was 56. EKG showed normal sinus rhythm at [address]-T changes. From the ED patient was given furosemide 20 mg IV, then referred for evaluation for admission to [facility]. Discharge Exam GENERAL APPEARANCE NAD, activity normal for age, well developed/ well nourished, no cyanosis, pallor, or diaphoresis. EYES lids/conjunctiva normal. EARS/NOSE/THROAT Mucous membranes moist, nares normal, lips/teeth normal uvula midline without oral pharyngeal erythema, exudate or swelling TMs normal bilaterally. No lymphangitis/lymphedema. HEAD/NECK normocephalic atraumatic, no facial trauma, neck is supple. RESPIRATORY respiratory effort normal, speaks in full sentences, no tripod position, no accessory muscle use. Lungs clear to auscultation without rhonchi, wheezes, rales CARDIAC Regular rate and rhythm, no edema. ABDOMINAL Soft, ND/NT. No evidence of fluid wave. No pulsatile masses on exam, rebound tenderness, Oneill sign or pain over Mcburney's point. MUSCLES/EXTREMITIES No abnormal range of motion, no swelling. SKIN Warm, pink and dry. No rashes, dermatoses, petechiae or lesions. NEUROLOGICAL Speech is clear and appropriate. Normal level of consciousness. Gait and coordination are normal. 5/5 strength in all extremities. PSYCH Normal mood and affect. Judgement/competence is appropriate Discharge Plan Discharge Items Patient Disposition: Home - Self-Care Reason For Visit: ELEVATED TROPONIN, MILD PULM EDEMA Discharge Diagnosis: mild CHF Condition on Discharge: Fair Activity: Resume your previous activity Non-emergency contact: Primary Care Provider Call non-emergency contact if: you have any medication questions Follow-up/Referrals: Roslyn Molina MD [Primary Care Provider] - 09/10/25 10:00 am (PCP follow up: 09/10 @ 10am ) Diet: Regular Addtl Attending Provider Instructions: Follow up with cardiology in 2 weeks Pending Studies at Discharge: No Stand-Alone Forms: [employer], Smoking Cessation Medications and DC Order Prescriptions: Continued paroxetine HCl 20 mg tablet 20 mg PO QPM Qty: 90 3RF atorvastatin 20 mg tablet 20 mg PO HS triamcinolone acetonide 0.1 % paste 1 appln DT QID PRN (Reason: ud) levothyroxine [Synthroid] 112 mcg tablet 100 mcg PO QAM Qty: 90 Rx Instructions: TAKE THIS MED AT 3AM. PreserVision Lutein 226 mg-200 unit -5 mg-0.8 mg Capsule 1 cap PO BID cholecalciferol (vitamin D3) [Vitamin D3] 50 mcg (2,000 unit) Capsule 50 mcg PO QAM Multivitamin Women 50 Plus 8 mg iron-400 mcg-300 mcg Tablet 1 tab PO QAM Ca-D3-mag ox-hspz-xpc-danielle-bor [Calcium 600-D3 Plus (mag-zinc)] 600 mg calcium- 800 unit-50 mg Tablet 1 tab PO QAM Discharge Orders: Discharge Order (Routine); Ordered 09/01/25 Ordered By: Graham Phillip Admission Data Admit Date/Time: 08/31/25 20:29 Attending Provider: Graham Phillip Admit Provider: Michael Carias Primary Care Provider: Roslyn Molina Other Providers: Michael Carias; Ubaldo Mcgraw Jr; Graham Chapa Hospital Stay Data Consultations 08/31/25 19:07 ED Decision to Admit Stat 08/31/25 22:01 Consult Cardiology Routine 09/01/25 10:26 Consult Cardiology Routine Diagnostic Imagining Performed 08/31/25 17:34 CT angio chest PE protocol Stat Pending Results Patient Have Any Pending Studies at Discharge: No Discharge Instructions Given to Patient (Per Discharging Provider) Follow up with cardiology in 2 weeks Total Time Total Time Spent Total Time Spent (In Minutes): 50 Coding Level of Care Code 49058 INP/OBS DISCH >30 MIN Diagnoses CHF (congestive heart failure) I50.9 Heart failure chronicity: acute Heart failure type: unspecified Elevated d-dimer R79.89
[2025-09-01 17:01] VITALS: PULSE 70
--- NOTE | 2025-09-01 18:46 | Electrocardiogram Report ---
Test Reason : Blood Pressure : */* mmHG Vent. Rate : 70 BPM Atrial Rate : 70 BPM P-R Int : 166 ms QRS Dur : 86 ms QT Int : 410 ms P-R-T Axes : -15 67 54 degrees QTcB Int : 442 ms Normal sinus rhythm Nonspecific T wave abnormality Abnormal ECG Confirmed by Graham Chapa ([id number]) on 09/01/2025 6:46:20 PM Referred By: Confirmed By: Graham Chapa
--- NOTE | 2025-09-01 18:52 | Electrocardiogram Report ---
Test Reason : Blood Pressure : */* mmHG Vent. Rate : 65 BPM Atrial Rate : 65 BPM P-R Int : 176 ms QRS Dur : 96 ms QT Int : 440 ms P-R-T Axes : 61 8 45 degrees QTcB Int : 457 ms Sinus rhythm with occasional Premature ventricular complexes and Premature atrial complexes Nonspecific T wave abnormality Abnormal ECG When compared with ECG of 31-Aug-2025 17:35, (unconfirmed) Premature ventricular complexes are now Present Premature atrial complexes are now Present Confirmed by Graham Chapa ([id number] on 09/01/2025 6:51:29 PM Referred By: Roslyn Molina Confirmed By: Graham Chapa
== END 2025-09-01 17:34 | disposition home or self-care (01) ==
LOC: ED 17:10 → 2E 17:10 → SUATTDRO 20:29 → 2E 21:46